=== PATIENT | female | born 1985 | race Caucasian/White ===

== ENCOUNTER 2023-05-08 11:40 | Emergency (ER) | payer BC ==
[~2023-05-08] VITALS: Ht 162.6 cm; Wt 62.0 kg
[2023-05-08 11:41] VITALS: BP 151/88; TEMP 99; O2SAT 95
[2023-05-08] MEDS ORDERED: FLUO40CA PO (11:49)
[2023-05-08] MEDS ORDERED: RABIES VACCINE HUMAN 2.5 INTERNATIONAL UNITS/ML VIAL IM ONE (13:15)
[2023-05-08] MEDS ORDERED: RABIES IMMUNE GLOBULIN 1500 INTERNATIONAL UNIT/5ML VIAL IM.IMMUN ONE (13:15)
== END 2023-05-08 14:16 | disposition home or self-care (01) ==
LOC: M ED 11:40
DX: Z29.14 Encounter for prophylactic rabies immune globulin (principal)